=== PATIENT | male | born 1930 | race Caucasian/White ===

== ENCOUNTER 2017-09-10 08:54 | Inpatient (IN) | payer MEDICARE ==
[~2017-09-10] VITALS: Ht 172.7 cm; Wt 77.7 kg
[2017-09-10] MEDS ORDERED: SODIUM CHLORIDE FLUSH 10ML SYR IVF ONE (09:30)
[2017-09-10] MEDS ORDERED: METO200T47 PO (09:51)
[2017-09-10] MEDS ORDERED: LISI40TA PO (09:51)
[2017-09-10] MEDS ORDERED: AMLO10TA2 PO (09:52)
[2017-09-10] MEDS ORDERED: ATOR10TA PO (09:54)
[2017-09-10] MEDS ORDERED: ASPI-496 PO (09:54)
[2017-09-10] MEDS ORDERED: CHOL100012 PO (09:54)
[2017-09-10] MEDS ORDERED: FURO20TA3 PO (09:55)
[2017-09-10] MEDS ORDERED: POTA10CA PO (09:55)
[2017-09-10 09:59] LABS: MEAN CORPUSCULAR HEMOGLOBIN 32.4 pg (27.5-34.5); MEAN CORPUSCULAR HGB CONC 34.4 g/dL (33.2-36.2); MEAN CORPUSCULAR VOLUME 94.1 fL (81-97); MEAN PLATELET VOLUME 10.4 fL (7.4-10.4); PLATELET COUNT 146 x10^3/uL (130-400); RED BLOOD COUNT 4.91 x10^6/uL (4.38-5.82); RED CELL DISTRIBUTION WIDTH 12.6 % (9.4-14.8)
[2017-09-10] MEDS ORDERED: CEFTRIAXONE PMX 1GM/50ML 50 ML IVPB ONE (10:00)
[2017-09-10] MEDS ORDERED: AZITHROMYCIN 500 MG in SODIUM CHLORIDE 0.9% 250 ML IVPB ONE (10:00)
[2017-09-10] MEDS ORDERED: CEFTRIAXONE PMX 1GM/50ML 50 ML ONE (10:03)
[2017-09-10 10:04] LABS: INTERNATIONAL NORMALIZED RATIO 1.08 (0.93-1.1); PROTHROMBIN TIME 11.2 Seconds (9.6-11.5)
[2017-09-10 10:08] LABS: ALBUMIN 3.6 g/dL (3.4-5.0); ANION GAP 10 mmol/L (5-15); CALCIUM 7.8 mg/dL (8.5-10.1); CHLORIDE 106 mmol/L (98-107)
[2017-09-10 10:12] LABS: MD YES
[2017-09-10 10:13] LABS: LYMPH#(MANUAL) 0.62 x10^3/uL (1-3.4); LYMPHS% (MANUAL) 3 % (22-44); MONOS#(MANUAL) 0.41 x10^3/uL (0.3-2.7); MONOS% (MANUAL) 2 % (2-9)
[2017-09-10 10:14] LABS: <RBC MORPHOLOGY> NORMAL; ALANINE AMINOTRANSFERASE 17 U/L (12-78); ALKALINE PHOSPHATASE 82 U/L (45-117); BAND#(MANUAL) 2.26 x10^3/uL; BANDS%(MANUAL) 11 % (0-7); BILIRUBIN,TOTAL 1.2 mg/dL (0.2-1.0); CREATININE 1.08 mg/dL (0.7-1.3); SEG#(MANUAL) 17.22 x10^3/uL (1.8-6.8); SEGS% (MANUAL) 84 % (42-75); TOTAL PROTEIN 6.5 g/dL (6.4-8.2); TROPONIN I < 0.015 ng/mL (0.000-0.045)
[2017-09-10 10:15] LABS: <PLATELET ESTIMATE> ADEQUATE; LARGE PLATELETS 1+
[2017-09-10] MEDS ORDERED: SODIUM CHLORIDE FLUSH 10ML SYR IVF PRN (11:00)
[2017-09-10] MEDS ORDERED: SODIUM CHLORIDE 0.9% 1,000ML IVBOLUS ONE (11:00)
[2017-09-10] MEDS ORDERED: SODIUM CHLORIDE 0.9% 1,000 ML IV SCH (11:47)
[2017-09-10] MEDS ORDERED: ACETAMINOPHEN 325 MG TABLET PO PRN (12:00)
[2017-09-10] MEDS ORDERED: DOCUSATE 100 MG CAPSULE PO PRN (12:00)
[2017-09-10] MEDS ORDERED: GUAIFENESIN/DM 200-20MG, 10ML UDC PO PRN (12:00)
[2017-09-10] MEDS ORDERED: ONDANSETRON ODT 4 MG PO PRN (12:00)
[2017-09-10] MEDS ORDERED: LABETALOL 5MG/ML, 20ML IVPush PRN (12:00)
[2017-09-10] MEDS ORDERED: BISACODYL 10 MG SUPP PR PRN (12:00)
[2017-09-10] MEDS ORDERED: ONDANSETRON 2MG/ML, 2ML IVPush PRN (12:00)
[2017-09-10] MEDS ORDERED: ENALAPRILAT 1.25 MG/ML, 2ML IVPush PRN (12:00)
[2017-09-10 12:18] VITALS: BP 122/62
[2017-09-10] MEDS ORDERED: ALBUTEROL SULFATE 2.5 MG/3 ML NPPB PRN (12:30)
[2017-09-10 12:39] LABS: HEMOGLOBIN A1C 6.2 % (4.2-6.3)
[2017-09-10] MEDS: FUROSEMIDE 20 MG TABLET PO SCH (12:47)
[2017-09-10] MEDS ORDERED: ENOXAPARIN 40 MG/0.4 ML SQ SCH (13:00)
[2017-09-10] MEDS: ALBUTEROL SULFATE 2.5 MG/3 ML NPPB SCH ×2 (14:12→19:38)
[2017-09-10 17:57] LABS: CULTURE INDICATED? YES; MICROSCOPIC INDICATED
[2017-09-10 19:52] VITALS: BP 119/52
[2017-09-10] MEDS: ATORVASTATIN 10 MG TABLET PO SCH (21:12)
[2017-09-11 01:49] VITALS: BP 125/59
[2017-09-11 05:30] LABS: ALBUMIN 2.6 g/dL (3.4-5.0); ANION GAP 6 mmol/L (5-15); CALCIUM 7.7 mg/dL (8.5-10.1); CHLORIDE 109 mmol/L (98-107)
[2017-09-11 05:34] LABS: BASOPHILS % (AUTO) 0 % (0-1); EOSINOPHILS # (AUTO) 0.01 x10^3/uL (0-0.4); EOSINOPHILS % (AUTO) 0 % (1-7); LYMPHOCYTES # (AUTO) 0.91 x10^3/uL (1-3.4); LYMPHOCYTES % (AUTO) 6 % (22-44); MD NO; MEAN CORPUSCULAR HEMOGLOBIN 31.6 pg (27.5-34.5); MEAN CORPUSCULAR HGB CONC 33.1 g/dL (33.2-36.2); MEAN CORPUSCULAR VOLUME 95.2 fL (81-97); MEAN PLATELET VOLUME 10.2 fL (7.4-10.4); MONOCYTES # (AUTO) 0.65 x10^3/uL (0.2-0.8); MONOCYTES % (AUTO) 5 % (2-9); NEUTROPHILS # (AUTO) 12.92 x10^3/uL (1.8-6.8); NEUTROPHILS % (AUTO) 89 % (42-75); PLATELET COUNT 115 x10^3/uL (130-400); RED CELL DISTRIBUTION WIDTH 13.4 % (9.4-14.8)
[2017-09-11 05:35] LABS: ALANINE AMINOTRANSFERASE 12 U/L (12-78); ALKALINE PHOSPHATASE 57 U/L (45-117); BILIRUBIN,TOTAL 0.9 mg/dL (0.2-1.0); CREATININE 0.92 mg/dL (0.7-1.3); TOTAL PROTEIN 5.2 g/dL (6.4-8.2)
[2017-09-11 06:11] VITALS: BP 124/64
[2017-09-11] MEDS: METOPROLOL SUCCINATE 50 MG TAB.ER.24H PO SCH (06:12)
[2017-09-11] MEDS: ALBUTEROL SULFATE 2.5 MG/3 ML NPPB SCH ×4 (06:46→20:00)
[2017-09-11 07:04] VITALS: BP 147/67
[2017-09-11] MEDS: SENNA/DOCUSATE TABLET PO SCH (09:00)
[2017-09-11] MEDS ORDERED: OMNIPAQUE 350 MG/ML, 75ML BOTTLE ONE (09:20)
[2017-09-11 09:25] LABS: OCCULT BLOOD NEGATIVE (NEGATIVE)
[2017-09-11] MEDS: CEFTRIAXONE PMX 1GM/50ML 50 ML IV SCH (10:35)
[2017-09-11] MEDS: LISINOPRIL 20 MG TABLET PO SCH (10:36)
[2017-09-11] MEDS: AMLODIPINE 5 MG TABLET PO SCH (10:36)
[2017-09-11] MEDS: CHOLECALCIFEROL 1,000 UNIT TABLET PO SCH (10:36)
[2017-09-11] MEDS: FUROSEMIDE 20 MG TABLET PO SCH (10:36)
[2017-09-11] MEDS: POTASSIUM CHLORIDE 10 MEQ TABLET.ER PO SCH (10:37)
[2017-09-11] MEDS: AZITHROMYCIN 500 MG in SODIUM CHLORIDE 0.9% 250 ML IV SCH (11:24)
[2017-09-11] MEDS ORDERED: SODIUM CHLORIDE NASAL SPRAY 45ML BOTTLE NAS PRN (14:00)
[2017-09-11 15:27] VITALS: BP 131/70
[2017-09-11 19:21] VITALS: BP 134/64
[2017-09-11] MEDS: ATORVASTATIN 10 MG TABLET PO SCH (20:55)
[2017-09-12 02:39] VITALS: BP 135/78
[2017-09-12] MEDS: METOPROLOL SUCCINATE 50 MG TAB.ER.24H PO SCH (05:02)
[2017-09-12 05:31] LABS: BASOPHILS % (AUTO) 0 % (0-1); EOSINOPHILS # (AUTO) 0.04 x10^3/uL (0-0.4); EOSINOPHILS % (AUTO) 0 % (1-7); LYMPHOCYTES # (AUTO) 0.64 x10^3/uL (1-3.4); LYMPHOCYTES % (AUTO) 5 % (22-44); MD NO; MEAN CORPUSCULAR HEMOGLOBIN 32.5 pg (27.5-34.5); MEAN CORPUSCULAR VOLUME 95.6 fL (81-97); MEAN PLATELET VOLUME 10.3 fL (7.4-10.4); MONOCYTES # (AUTO) 0.66 x10^3/uL (0.2-0.8); MONOCYTES % (AUTO) 5 % (2-9); NEUTROPHILS # (AUTO) 12.17 x10^3/uL (1.8-6.8); NEUTROPHILS % (AUTO) 90 % (42-75); PLATELET COUNT 134 x10^3/uL (130-400); RED BLOOD COUNT 3.97 x10^6/uL (4.38-5.82); RED CELL DISTRIBUTION WIDTH 12.9 % (9.4-14.8)
[2017-09-12 05:33] LABS: ALBUMIN 2.6 g/dL (3.4-5.0); ANION GAP 6 mmol/L (5-15); CALCIUM 7.8 mg/dL (8.5-10.1); CHLORIDE 106 mmol/L (98-107)
[2017-09-12 05:37] LABS: ALANINE AMINOTRANSFERASE 13 U/L (12-78); ALKALINE PHOSPHATASE 64 U/L (45-117); BILIRUBIN,TOTAL 0.9 mg/dL (0.2-1.0); CREATININE 0.78 mg/dL (0.7-1.3); TOTAL PROTEIN 5.7 g/dL (6.4-8.2)
[2017-09-12 06:20] VITALS: BP 134/78
[2017-09-12] MEDS: ALBUTEROL SULFATE 2.5 MG/3 ML NPPB SCH ×2 (07:01→11:00)
[2017-09-12] MEDS: CEFTRIAXONE PMX 1GM/50ML 50 ML IV SCH (09:20)
[2017-09-12] MEDS: AMLODIPINE 5 MG TABLET PO SCH (09:20)
[2017-09-12] MEDS: FUROSEMIDE 20 MG TABLET PO SCH (09:20)
[2017-09-12] MEDS: SENNA/DOCUSATE TABLET PO SCH (09:20)
[2017-09-12] MEDS: LISINOPRIL 20 MG TABLET PO SCH (09:21)
[2017-09-12] MEDS: CHOLECALCIFEROL 1,000 UNIT TABLET PO SCH (09:21)
[2017-09-12] MEDS: POTASSIUM CHLORIDE 10 MEQ TABLET.ER PO SCH (09:21)
[2017-09-12] MEDS: AZITHROMYCIN 500 MG in SODIUM CHLORIDE 0.9% 250 ML IV SCH (11:23)
[2017-09-12 12:55] VITALS: BP 138/67
[2017-09-12 18:53] VITALS: BP 129/69
[2017-09-12] MEDS: ATORVASTATIN 10 MG TABLET PO SCH (21:30)
[2017-09-13 01:32] VITALS: BP 125/73
[2017-09-13] MEDS: METOPROLOL SUCCINATE 50 MG TAB.ER.24H PO SCH (05:32)
[2017-09-13] MEDS ORDERED: AZITHROMYCIN 500 MG in SODIUM CHLORIDE 0.9% 250 ML IV SCH (07:00)
[2017-09-13] MEDS ORDERED: ALBUTEROL SULFATE 2.5 MG/3 ML NPPB PRN (07:00)
[2017-09-13 07:08] LABS: BASOPHILS # (AUTO) 0.03 x10^3/uL (0-0.1); BASOPHILS % (AUTO) 0 % (0-1); EOSINOPHILS # (AUTO) 0.14 x10^3/uL (0-0.4); EOSINOPHILS % (AUTO) 1 % (1-7); LYMPHOCYTES # (AUTO) 0.84 x10^3/uL (1-3.4); LYMPHOCYTES % (AUTO) 6 % (22-44); MD SCAN; MEAN CORPUSCULAR HEMOGLOBIN 32.3 pg (27.5-34.5); MEAN CORPUSCULAR VOLUME 95.1 fL (81-97); MEAN PLATELET VOLUME 10.7 fL (7.4-10.4); MONOCYTES # (AUTO) 0.55 x10^3/uL (0.2-0.8); MONOCYTES % (AUTO) 4 % (2-9); NEUTROPHILS # (AUTO) 12.81 x10^3/uL (1.8-6.8); NEUTROPHILS % (AUTO) 89 % (42-75); PLATELET COUNT 156 x10^3/uL (130-400); RED BLOOD COUNT 4.35 x10^6/uL (4.38-5.82); RED CELL DISTRIBUTION WIDTH 12.8 % (9.4-14.8)
[2017-09-13] MEDS ORDERED: CEFD300C37 PO (07:24)
[2017-09-13] MEDS ORDERED: AZIT500T5 PO (07:24)
[2017-09-13 08:12] VITALS: BP 136/76
[2017-09-13] MEDS: SENNA/DOCUSATE TABLET PO SCH (08:44)
[2017-09-13] MEDS: AMLODIPINE 5 MG TABLET PO SCH (08:44)
[2017-09-13] MEDS: FUROSEMIDE 20 MG TABLET PO SCH (08:45)
[2017-09-13] MEDS: POTASSIUM CHLORIDE 10 MEQ TABLET.ER PO SCH (08:45)
[2017-09-13] MEDS: LISINOPRIL 20 MG TABLET PO SCH (08:45)
[2017-09-13] MEDS ORDERED: CEFTRIAXONE PMX 1GM/50ML 50 ML IV SCH (09:00)
[2017-09-13] MEDS: CHOLECALCIFEROL 1,000 UNIT TABLET PO SCH (09:03)
== END 2017-09-13 14:22 | disposition home or self-care (01) | DRG 871 ==
LOC: ED 10:06 → EDIP 10:55 → 3NE 11:46
PROVIDERS: ADMIT Hospitalist; ATTEND Hospitalist
DX: A41.9 Sepsis, unspecified organism (principal); J15.9 Unspecified bacterial pneumonia; J96.01 Acute respiratory failure with hypoxia; R65.21 Severe sepsis with septic shock; E44.0 Moderate protein-calorie malnutrition; I11.0 Hypertensive heart disease with heart failure; I50.9 Heart failure, unspecified; R04.2 Hemoptysis; I44.7 Left bundle-branch block, unspecified; R74.0 Nonspecific elevation of levels of transaminase and lactic acid dehydrogenase [LDH]; R79.89 Other specified abnormal findings of blood chemistry; I25.10 Atherosclerotic heart disease of native coronary artery without angina pectoris; K59.00 Constipation, unspecified; Z66 Do not resuscitate; Z82.49 Family history of ischemic heart disease and other diseases of the circulatory system; Z68.26 Body mass index [BMI] 26.0-26.9, adult; Z83.3 Family history of diabetes mellitus; Z87.891 Personal history of nicotine dependence; Z95.1 Presence of aortocoronary bypass graft
CPT/HCPCS: 36415; 71045; 71260; 80053; 81001; 82272; 83036; 83605; 83735; 83880; 84100; 84145; 84484; 85014; 85018; 85025; 85610; 85730; 87040; 87070; 87086; 87205; 93005; 93306; 94640; 96365; J0456; J0696; J1650; J7613; Q9967; J7030; J7050